=== PATIENT | female | born 1955 | race Caucasian/White ===

== ENCOUNTER 2019-03-06 00:06 | Emergency (ER) | payer OTHER ==
[~2019-03-06] VITALS: Ht 167.6 cm; Wt 73.0 kg
[2019-03-06 00:43] VITALS: BP 159/76
--- NOTE | 2019-03-06 00:53 | PHYS DOC ---
Past Medical History Past Medical History: Hypertension Past Surgical History: Hip Replacement, Tonsillectomy, Tubal ligation Alcohol Use: Occasionally Adult General Chief Complaint Chief Complaint: MECHANICAL FALL HPI HPI Patient is a 63 year old female who presents with complaint of right-sided rib pain after falling earlier today. Patient rates pain as moderate to severe. She states the pain is worsened if she takes in a deep breath. She describes pain as sharp and stabbing in nature. She states the pain radiates from her neck all the way around to the anterolateral region of the ribs. Patient denies any other injuries.[] Review of Systems Review of Systems Constitutional: Denies fever or chills [] Respiratory: Denies cough or shortness of breath [] Cardiovascular: No additional information not addressed in HPI [] Musculoskeletal: Positive right-sided back and rib pain [] Integument: Denies rash or skin lesions [] Neurologic: Denies headache, focal weakness or sensory changes [] Current Medications Current Medications Current Medications Medications (Trade) Dose Ordered Sig/Rin Start Time Stop Time Status Last Admin Dose Admin Oxycodone/ Acetaminophen (Percocet 7.5/ 325) 1 tab 1X ONCE 03/06/19 01:00 03/06/19 01:01 DC 03/06/19 01:05 1 TAB Allergies Allergies Allergies Coded Allergies Type Severity Reaction Last Updated Verified No Known Drug Allergies 03/06/19 No Physical Exam Physical Exam Constitutional: Well developed, well nourished, appears uncomfortable, non-toxic appearance. [] Neck: Normal range of motion, no tenderness, supple, no stridor. [] Cardiovascular: Regular rate and rhythm[] Lungs & Thorax: Bilateral breath sounds clear to auscultation [] Back: There is tenderness to palpation in the thoracic paraspinal musculature on the right around T7-T8 region. [] Extremities: No tenderness, no cyanosis, no clubbing, ROM intact. [] Current Patient Data Vital Signs Vital Signs Date Time Temp Pulse Resp B/P (MAP) Pulse Ox O2 Delivery O2 Flow Rate FiO2 03/06/19 01:05 18 98 Room Air 03/06/19 00:43 98.3 71 159/76 (103) 98.3 EKG EKG [] Radiology/Procedures Radiology/Procedures [] Impressions: Right rib series demonstrates no acute bony abnormalities. Course & Med Decision Making Course & Med Decision Making Pertinent Labs and Imaging studies reviewed. (See chart for details) [] Dragon Disclaimer Dragon Disclaimer This electronic medical record was generated, in whole or in part, using a voice recognition dictation system. Departure Departure Impression: Primary Impression: Rib contusion Disposition: 01 HOME, SELF-CARE Condition: STABLE Referrals: SRINIVASA MCCORMACK MD (PCP) Patient Instructions: Rib Contusion Scripts Hydrocodone/Apap 5-325 (NORCO 5-325 TABLET) 1 Each Tablet 1-2 EACH PO PRN Q6HRS PRN for PAIN, #15 as needed for pain Prov: MATTHEW BURKETT Jr. DO 03/06/19 Problem Qualifiers Primary Impression: Rib contusion Encounter type: initial encounter Laterality: right Qualified Codes: S20.211A - Contusion of right front wall of thorax, initial encounter MATTHEW BURKETT Jr. DO Mar 06, 2019 00:53
[2019-03-06] MEDS ORDERED: oxyCODONE/APAP 7.5/325 1 TAB TABLET PO ONE (01:00)
[2019-03-06] MEDS ORDERED: HYDR-3164 PO (02:07)
--- NOTE | 2019-03-06 02:18 | RAD ---
Exam:Right ribs with PA chest Date: 03/06/2019 12:49 AM Comparison: No prior Indication: Fall, right rib pain Findings/ Impression: The heart is not enlarged. Mediastinal and hilar contours are normal. No focal parenchymal airspace opacity. No pleural effusion or pneumothorax. AP, Oblique and Spot images of the right ribs are negative for acute displaced rib fracture. Negative focal pleural elevation. Symmetrical intercostal spacing. It is of note that an acute non-displaced rib fracture can be in-apparent on initial post-trauma imaging. Rightward curvature of the thoracolumbar spine. Electronically signed by: Jones Horowitz MD (03/06/2019 2:15 AM) [facility]
[2019-03-06] MEDS ORDERED: OXYC1TAB15 PO (02:34)
[2019-03-06] MEDS ORDERED: oxyCODONE/APAP 5/325 1 TAB TABLET PO ONE (02:45)
== END 2019-03-06 02:50 | disposition home or self-care (01) ==
LOC: ER 00:06
DX: S20.211A Contusion of right front wall of thorax, initial encounter (principal); M54.6 Pain in thoracic spine; I10 Essential (primary) hypertension; Z90.89 Acquired absence of other organs; Z98.51 Tubal ligation status; Z98.890 Other specified postprocedural states; W19.XXXA Unspecified fall, initial encounter; Y93.89 Activity, other specified; Y92.89 Other specified places as the place of occurrence of the external cause; Y99.8 Other external cause status
CPT/HCPCS: 71101; 99284